=== PATIENT | female | born 1985 | race Caucasian/White ===

== ENCOUNTER 2022-04-14 13:37 | Emergency (ER) | payer MEDICAID | END 2022-04-14 16:01 | disposition home or self-care (01) | LOC: MW.ED 13:37 | DX: K61.0 Anal abscess (principal) | CPT/HCPCS: 99283 ==

== ENCOUNTER 2022-07-06 08:13 | Emergency (ER) | payer MEDICAID ==
[2022-07-06] MEDS: Sodium Chloride 0.9% 10 ML Syringe FLUSH PRN (09:31)
[2022-07-06] MEDS: Sodium Chloride 0.9% 2.5 ML Syringe FLUSH PRN (09:31)
[2022-07-06 09:51] LABS: POTASSIUM,K 3.3 mmol/L (3.5-5.1)
[2022-07-06] MEDS: Iopamidol 755 MG/ML 500 ML Multipack Bottle IVPUSH STA (10:50)
== END 2022-07-06 13:06 | disposition home or self-care (01) ==
LOC: MW.ED 08:13
DX: R10.30 Lower abdominal pain, unspecified (principal); Z88.5 Allergy status to narcotic agent; Z91.048 Other nonmedicinal substance allergy status
CPT/HCPCS: 36415; 74177; 80048; 81001; 85025; 99284; J3490; Q9967

== ENCOUNTER 2022-07-18 19:48 | Emergency (ER) | payer MEDICAID ==
[2022-07-18] MEDS ORDERED: Sodium Chloride 0.9% 1,000 ML IV ONE (20:04)
[2022-07-18] MEDS ORDERED: Ondansetron 4 MG/2 ML SDV IVPUSH ONE (20:04)
[2022-07-18] MEDS ORDERED: Morphine 4 MG/ML Syringe IVPUSH ONE (20:04)
[2022-07-18 21:41] LABS: CARBON DIOXIDE,CO2 27.4 mmol/L (21.0-32.0); POTASSIUM,K 3.8 mmol/L (3.5-5.1)
== END 2022-07-18 22:11 | disposition home or self-care (01) ==
LOC: MW.ED 19:48
DX: K80.20 Calculus of gallbladder without cholecystitis without obstruction (principal); Z88.0 Allergy status to penicillin; Z88.5 Allergy status to narcotic agent; Z91.048 Other nonmedicinal substance allergy status; Z72.0 Tobacco use
CPT/HCPCS: 36415; 76705; 80053; 81003; 81025; 83690; 85025; 96361; 96374; 96375; 99284; J2270; J2405; J7030

== ENCOUNTER 2022-08-11 15:19 | Emergency (ER) | payer MEDICAID ==
[2022-08-11 16:23] LABS: BILIRUBIN,URINE NEGATIVE (NEGATIVE); COLOR,URINE YELLOW; GLUCOSE,URINE NEGATIVE (NEGATIVE); KETONES,URINE TRACE mg/dL (NEGATIVE); LEUKOCYTE ESTERASE,URINE NEGATIVE (NEGATIVE); NITRITE,URINE NEGATIVE (NEGATIVE); OCCULT BLOOD,URINE NEGATIVE (NEGATIVE); PROTEIN,URINE NEGATIVE (NEGATIVE); UROBILINOGEN,URINE 0.2 EU/dL (<2.0)
[2022-08-11 16:31] LABS: APPEARANCE,URINE HAZY
== END 2022-08-11 17:33 | disposition home or self-care (01) ==
LOC: MW.ED 15:19
DX: K82.8 Other specified diseases of gallbladder (principal); Z88.8 Allergy status to other drugs, medicaments and biological substances; Z88.6 Allergy status to analgesic agent; Z88.0 Allergy status to penicillin; Z88.5 Allergy status to narcotic agent; Z79.899 Other long term (current) drug therapy
CPT/HCPCS: 81003; 99283; 99284

== ENCOUNTER 2022-08-18 19:10 | Emergency (ER) | payer MEDICAID | END 2022-08-18 21:30 | disposition left against medical advice (07) | LOC: MW.ED 19:10 | DX: Z53.21 Procedure and treatment not carried out due to patient leaving prior to being seen by health care provider (principal) ==

== ENCOUNTER 2022-08-19 07:57 | Emergency (ER) | payer MEDICAID | END 2022-08-19 08:55 | disposition home or self-care (01) | LOC: MW.ED 07:57 | DX: L23.9 Allergic contact dermatitis, unspecified cause (principal); Z88.8 Allergy status to other drugs, medicaments and biological substances; Z88.6 Allergy status to analgesic agent; Z88.0 Allergy status to penicillin; Z79.899 Other long term (current) drug therapy | CPT/HCPCS: 99282; 99283 ==

== ENCOUNTER 2022-08-21 10:03 | Day surgery (SDC) | payer MEDICAID ==
[~2022-08-21 10:03] MED LIST: Lactated Ringers 1,000 ML IV SCH; Scopolamine 1.5 MG Transdermal Patch TOP ONE; cefOXitin 2 GM in Sodium Chloride 0.9% 100 ML IV ONE
[2022-08-21] MEDS ORDERED: Bupivacaine 0.5% 30 ML SDV ONE (11:11)
[2022-08-21] MEDS ORDERED: Bupivacaine 25%/EPINEPHrine/PF 30 ML ONE (11:30)
[2022-08-21] MEDS ORDERED: Ropivacaine 0.5% 5 MG/ML 30 ML SDV ONE (11:30)
[2022-08-21] MEDS ORDERED: Dexamethasone 4 MG/ML 5 ML MDV ONE (11:36)
[2022-08-21] MEDS ORDERED: Lidocaine 2% 5 ML SDV ONE (11:36)
[2022-08-21] MEDS ORDERED: Ondansetron 4 MG/2 ML SDV ONE (11:36)
[2022-08-21] MEDS ORDERED: Sugammadex Sodium 200 MG/2 ML VIAL ONE (11:36)
[2022-08-21] MEDS ORDERED: Propofol 200 MG/20 ML SDV ONE (11:36)
[2022-08-21] MEDS ORDERED: Rocuronium Bromide 50 MG/5 ML Syringe ONE (11:36)
[2022-08-21] MEDS ORDERED: fentaNYL 100 MCG/2 ML SDV ONE (11:37)
[2022-08-21] MEDS ORDERED: Water For Injection, Sterile 20 ML ONE (12:06)
[2022-08-21] MEDS ORDERED: cefOXitin 1 GM Vial ONE ×2 (12:06)
[2022-08-21] MEDS ORDERED: Midazolam 1 MG/ML 2 ML SDV ONE (13:18)
[2022-08-21] MEDS ORDERED: Morphine 4 MG/ML Syringe IVPUSH PRN (13:23)
[2022-08-21] MEDS ORDERED: Acetaminophen/HYDROcodone 325-5 MG Tab PO PRN (13:23)
[2022-08-21] MEDS ORDERED: Lactated Ringers 1,000 ML IV SCH (13:30)
[2022-08-21] MEDS ORDERED: Albuterol 0.083% 2.5 MG/3 ML Neb Soln NEB PRN (13:32)
[2022-08-21] MEDS ORDERED: fentaNYL 50 MCG/ML SDV IVPUSH PRN (13:32)
[2022-08-21] MEDS ORDERED: HYDROmorphone 1 MG/ML Syringe IVPUSH PRN (13:32)
[2022-08-21] MEDS ORDERED: Morphine 2 MG/ML SYRINGE IVPUSH PRN (13:32)
[2022-08-21] MEDS ORDERED: Naloxone 0.4 MG/ML SDV IVPUSH PRN (13:32)
[2022-08-21] MEDS ORDERED: Metoclopramide 10 MG/2 ML SDV IVPUSH PRN (13:32)
[2022-08-21] MEDS ORDERED: droPERidol 5 MG/2 ML SDV IVPUSH PRN (13:32)
[2022-08-21] MEDS ORDERED: Ondansetron 4 MG/2 ML SDV IVPUSH PRN (13:32)
== END 2022-08-21 14:40 | disposition home or self-care (01) ==
LOC: MW.SDS 10:03
PROVIDERS: ATTEND Surgery
DX: K80.10 Calculus of gallbladder with chronic cholecystitis without obstruction (principal); K82.8 Other specified diseases of gallbladder; F17.210 Nicotine dependence, cigarettes, uncomplicated; F41.0 Panic disorder [episodic paroxysmal anxiety]; F31.9 Bipolar disorder, unspecified; Z88.0 Allergy status to penicillin; Z91.048 Other nonmedicinal substance allergy status; Z88.8 Allergy status to other drugs, medicaments and biological substances; Z79.899 Other long term (current) drug therapy; Z98.890 Other specified postprocedural states
CPT/HCPCS: 47562; 81025; J0131; J0694; J1100; J1170; J2250; J2704; J2795; J3010; J3490; J7030; J7120; 00790; 64488; J2405

== ENCOUNTER 2022-11-10 09:55 | Day surgery (SDC) | payer MEDICAID ==
[~2022-11-10 09:55] MED LIST changes: -Scopolamine 1.5 MG Transdermal Patch TOP ONE; -cefOXitin 2 GM in Sodium Chloride 0.9% 100 ML IV ONE
[2022-11-10] MEDS ORDERED: Lidocaine 2% 5 ML SDV ONE (11:30)
[2022-11-10] MEDS ORDERED: Propofol 200 MG/20 ML SDV ONE (11:30)
[2022-11-10] MEDS ORDERED: Lactated Ringers 1,000 ML IV SCH (12:00)
== END 2022-11-10 12:16 | disposition home or self-care (01) ==
LOC: MW.SDS 09:55
PROVIDERS: ATTEND Surgery
DX: K29.50 Unspecified chronic gastritis without bleeding (principal); K20.90 Esophagitis, unspecified without bleeding; F32.A Depression, unspecified; F41.0 Panic disorder [episodic paroxysmal anxiety]; F43.10 Post-traumatic stress disorder, unspecified; G43.909 Migraine, unspecified, not intractable, without status migrainosus; B00.9 Herpesviral infection, unspecified; Z88.8 Allergy status to other drugs, medicaments and biological substances; Z88.0 Allergy status to penicillin; F17.210 Nicotine dependence, cigarettes, uncomplicated; Z86.59 Personal history of other mental and behavioral disorders; Z90.49 Acquired absence of other specified parts of digestive tract; Z98.84 Bariatric surgery status; Z98.51 Tubal ligation status; Z88.6 Allergy status to analgesic agent; Z79.899 Other long term (current) drug therapy
CPT/HCPCS: 43239; 81025; J2704; J7120; 00731; J3490

== ENCOUNTER 2023-04-20 08:42 | Emergency (ER) | payer MEDICAID ==
[2023-04-20 10:01] LABS: BASOPHILS ABSOLUTE AUTO 0.08 K/uL (0.00-0.20); BASOPHILS PERCENT AUTO 1.4 % (0.0-1.0); EOSINOPHILS ABSOLUTE AUTO 0.19 K/uL (0.00-0.45); EOSINOPHILS PERCENT AUTO 3.3 % (0.0-6.0); HEMATOCRIT 34.3 % (37.0-47.0); HEMOGLOBIN 10.9 g/dL (12.0-16.0); LYMPHOCYTES ABSOLUTE AUTO 2.25 K/uL (1.00-4.80); LYMPHOCYTES PERCENT AUTO 38.5 % (24.0-44.0); MEAN CORPUSCULAR HEMOGLOBIN 27.7 pg (28.0-32.0); MEAN CORPUSCULAR HGB CONC 31.8 g/dL (32.0-36.0); MEAN CORPUSCULAR VOLUME 87.1 fL (83.0-99.0); MEAN PLATELET VOLUME 10.1 fL (9.4-12.3); MONOCYTES ABSOLUTE AUTO 0.56 K/uL (0.00-0.80); MONOCYTES PERCENT AUTO 9.6 % (0.0-8.0); NEUTROPHILS ABSOLUTE AUTO 2.76 K/uL (1.80-7.70); NEUTROPHILS PERCENT AUTO 47.2 % (41.0-71.0); PLATELET COUNT,PLT 374 K/uL (150-400); RED BLOOD CELL COUNT 3.94 M/uL (4.10-5.30); WHITE BLOOD CELL COUNT,WBC 5.84 K/uL (3.9-11.3)
[2023-04-20] MEDS ORDERED: Iopamidol 755 MG/ML 500 ML Multipack Bottle IVPUSH STA (10:09)
[2023-04-20 10:25] LABS: A/G RATIO 0.9 (0.9-1.6); ALBUMIN 3.4 g/dL (3.4-5.0); BILIRUBIN TOTAL 0.3 mg/dL (0.2-1.0); CALCIUM 8.7 mg/dL (8.5-10.1); CARBON DIOXIDE,CO2 27.9 mmol/L (21.0-32.0); CREATININE 0.7 mg/dL (0.6-1.0); EST CRCL DRUG DOSING (CG) 106.37 mL/min; POTASSIUM,K 4.2 mmol/L (3.5-5.1); PROTEIN TOTAL,TP 7.2 g/dL (6.4-8.2)
== END 2023-04-20 11:48 | disposition home or self-care (01) ==
LOC: MW.ED 08:42
DX: H69.91 Unspecified Eustachian tube disorder, right ear (principal); Z88.0 Allergy status to penicillin; Z91.048 Other nonmedicinal substance allergy status; Z88.6 Allergy status to analgesic agent; Z79.899 Other long term (current) drug therapy
CPT/HCPCS: 36415; 70498; 80053; 81025; 85025; 99283; Q9967

== ENCOUNTER 2024-10-25 20:16 | Emergency (ER) | payer MEDICAID ==
[2024-10-25] MEDS: Ondansetron 4 MG Tab.DIS PO ONE (21:47)
[2024-10-25] MEDS: Ondansetron 4 MG/2 ML SDV IVPUSH ONE (21:47)
[2024-10-25 21:51] LABS: BASOPHILS ABSOLUTE AUTO 0.06 K/uL (0.00-0.20); BASOPHILS PERCENT AUTO 1.0 % (0.0-1.0); EOSINOPHILS ABSOLUTE AUTO 0.11 K/uL (0.00-0.45); EOSINOPHILS PERCENT AUTO 1.8 % (0.0-6.0); IMMATURE GRAN ABSOLUTE AUTO 0.00 K/uL (0.00-0.05); IMMATURE GRAN PERCENT AUTO 0.0 % (0.0-0.4); LYMPHOCYTES ABSOLUTE AUTO 2.12 K/uL (1.00-4.80); LYMPHOCYTES PERCENT AUTO 35.0 % (24.0-44.0); MEAN PLATELET VOLUME 10.4 fL (9.4-12.3); MONOCYTES ABSOLUTE AUTO 0.67 K/uL (0.00-0.80); MONOCYTES PERCENT AUTO 11.1 % (0.0-8.0); NEUTROPHILS ABSOLUTE AUTO 3.10 K/uL (1.80-7.70); NEUTROPHILS PERCENT AUTO 51.1 % (41.0-71.0); NRBC ABSOLUTE 0.00 K/uL (0.00-0.02); NRBC PERCENT 0.0 /100WBC (0.0-0.2); PLATELET COUNT,PLT 366 K/uL (150-400); RED BLOOD CELL COUNT 4.81 M/uL (4.10-5.30); WHITE BLOOD CELL COUNT,WBC 6.06 K/uL (3.9-11.3)
[2024-10-25 22:13] LABS: A/G RATIO 1.1 (0.9-1.6); ALANINE AMINOTRANSFERASE,ALT 21 IU/L (14-63); ASPARTATE AMNIOTRANSFERASE,AST 3 IU/L (15-37); BILIRUBIN TOTAL 0.6 mg/dL (0.2-1.0); BLOOD UREA NITROGEN,BUN 6 mg/dL (7.0-18.0); CARBON DIOXIDE,CO2 24.2 mmol/L (21.0-32.0); CHLORIDE,CL 103 mmol/L (98-107); CREATININE 0.9 mg/dL (0.6-1.0); GLUCOSE RANDOM 102 mg/dL (74-106); POTASSIUM,K 3.5 mmol/L (3.5-5.1); PROTEIN TOTAL,TP 7.5 g/dL (6.4-8.2); SODIUM,NA 139 mmol/L (136-145)
[2024-10-25 22:14] LABS: ESTIMATED GFR 84 mL/min (>60)
[2024-10-25 22:23] LABS: APPEARANCE,URINE CLEAR; GLUCOSE,URINE NEGATIVE (NEGATIVE); OCCULT BLOOD,URINE NEGATIVE (NEGATIVE)
[2024-10-25 22:29] LABS: SQUAMOUS EPITHELIAL CELLS,UR MODERATE
== END 2024-10-25 23:02 | disposition home or self-care (01) ==
LOC: MW.ED 20:16
DX: K52.9 Noninfective gastroenteritis and colitis, unspecified (principal); Z88.0 Allergy status to penicillin; Z88.8 Allergy status to other drugs, medicaments and biological substances; Z79.899 Other long term (current) drug therapy; Z75.3 Unavailability and inaccessibility of health-care facilities; Z90.49 Acquired absence of other specified parts of digestive tract
CPT/HCPCS: 36415; 80053; 81001; 81025; 83690; 83735; 85025; 96361; 96374; 99284; J2405; J7030; 99282

== ENCOUNTER 2024-11-13 18:06 | Emergency (ER) | payer MEDICAID ==
[2024-11-13 19:04] LABS: BASOPHILS ABSOLUTE AUTO 0.04 K/uL (0.00-0.20); BASOPHILS PERCENT AUTO 0.7 % (0.0-1.0); EOSINOPHILS ABSOLUTE AUTO 0.06 K/uL (0.00-0.45); EOSINOPHILS PERCENT AUTO 1.1 % (0.0-6.0); IMMATURE GRAN ABSOLUTE AUTO 0.00 K/uL (0.00-0.05); IMMATURE GRAN PERCENT AUTO 0.0 % (0.0-0.4); LYMPHOCYTES ABSOLUTE AUTO 1.39 K/uL (1.00-4.80); LYMPHOCYTES PERCENT AUTO 24.9 % (24.0-44.0); MEAN PLATELET VOLUME 10.3 fL (9.4-12.3); MONOCYTES ABSOLUTE AUTO 0.42 K/uL (0.00-0.80); MONOCYTES PERCENT AUTO 7.5 % (0.0-8.0); NEUTROPHILS ABSOLUTE AUTO 3.68 K/uL (1.80-7.70); NEUTROPHILS PERCENT AUTO 65.8 % (41.0-71.0); NRBC ABSOLUTE 0.00 K/uL (0.00-0.02); NRBC PERCENT 0.0 /100WBC (0.0-0.2); PLATELET COUNT,PLT 285 K/uL (150-400); RED BLOOD CELL COUNT 4.13 M/uL (4.10-5.30); WHITE BLOOD CELL COUNT,WBC 5.59 K/uL (3.9-11.3)
[2024-11-13] MEDS: Ondansetron 4 MG/2 ML SDV IVPUSH ONE (19:04)
[2024-11-13] MEDS: Ketorolac 30 MG/ML SDV IVPUSH ONE (19:04)
[2024-11-13] MEDS: LORazepam 2 MG/ML SDV IVPUSH ONE (19:05)
[2024-11-13 19:35] LABS: A/G RATIO 1.0 (0.9-1.6); ALANINE AMINOTRANSFERASE,ALT 37 IU/L (14-63); ASPARTATE AMNIOTRANSFERASE,AST 12 IU/L (15-37); BILIRUBIN TOTAL 0.6 mg/dL (0.2-1.0); BLOOD UREA NITROGEN,BUN 8 mg/dL (7.0-18.0); CARBON DIOXIDE,CO2 28.1 mmol/L (21.0-32.0); CHLORIDE,CL 106 mmol/L (98-107); CREATININE 0.7 mg/dL (0.6-1.0); GLUCOSE RANDOM 109 mg/dL (74-106); POTASSIUM,K 4.0 mmol/L (3.5-5.1); PROTEIN TOTAL,TP 6.3 g/dL (6.4-8.2); SODIUM,NA 141 mmol/L (136-145)
[2024-11-13 19:37] LABS: ESTIMATED GFR 113 mL/min (>60)
== END 2024-11-13 20:11 | disposition home or self-care (01) ==
LOC: MW.ED 18:06
DX: G43.909 Migraine, unspecified, not intractable, without status migrainosus (principal); E86.0 Dehydration; Z90.49 Acquired absence of other specified parts of digestive tract; Z88.0 Allergy status to penicillin; Z88.8 Allergy status to other drugs, medicaments and biological substances; Z79.899 Other long term (current) drug therapy; Z75.3 Unavailability and inaccessibility of health-care facilities
CPT/HCPCS: 36415; 80053; 85025; 96361; 96374; 96375; 99284; J1885; J2060; J2405; J7030; 99283

== ENCOUNTER 2024-12-26 20:27 | Emergency (ER) | payer MEDICAID | END 2024-12-26 22:34 | disposition home or self-care (01) | LOC: MW.ED 20:27 | DX: J02.0 Streptococcal pharyngitis (principal); Z91.048 Other nonmedicinal substance allergy status; Z88.0 Allergy status to penicillin; Z88.8 Allergy status to other drugs, medicaments and biological substances; Z79.899 Other long term (current) drug therapy | CPT/HCPCS: 87428; 87651; 99283; A9270 ==

== ENCOUNTER 2025-02-03 13:37 | Emergency (ER) | payer MEDICAID | END 2025-02-03 14:15 | disposition home or self-care (01) | LOC: MW.ED 13:37 | DX: L25.9 Unspecified contact dermatitis, unspecified cause (principal); Z79.899 Other long term (current) drug therapy; Z88.0 Allergy status to penicillin; Z88.8 Allergy status to other drugs, medicaments and biological substances; Z90.49 Acquired absence of other specified parts of digestive tract | CPT/HCPCS: 99283; A9270 ==